=== PATIENT | male | born 1985 | race African-American/Black ===

== ENCOUNTER 2024-05-08 12:00 | Emergency (ER) | payer OTHER ==
[~2024-05-08] VITALS: Ht 175.3 cm; Wt 95.3 kg
[2024-05-08] MEDS ORDERED: CYCLOBENZAPRINE5 MG PO (12:18)
[2024-05-08] MEDS ORDERED: FAMOTIDINE/PF 20 MG/2 ML VIAL IV PUSH ONE (13:30)
[2024-05-08] MEDS ORDERED: 0.9 % SODIUM CHLORIDE 1,000 ML IV SCH (13:30)
[2024-05-08] MEDS ORDERED: PROMETHAZINE HCL 50 MG/ML AMPUL IM ONE (13:30)
[2024-05-08 14:02] LABS: HEMATOCRIT 44.5 % (39.0-48.0); HEMOGLOBIN 15.6 g/dL (13-16.00); MEAN CORPUSCULAR HEMOGLOBIN 29.8 pg (27.00-32.0); MEAN CORPUSCULAR HGB CONC 35.1 g/dl (32.0-36.0); PLATELET COUNT 280 K/uL (150-450); RED BLOOD COUNT 5.23 M/uL (4.00-6.00); RED CELL DISTRIBUTION WIDTH 14.5 % (11.5-14.5)
[2024-05-08 14:20] LABS: ALBUMIN 3.9 gm/dL (3.4-5.0); BILIRUBIN TOTAL 0.79 mg/dL (0.3-1.2); CALCIUM 9.5 mg/dL (8.5-10.1); CREATININE SERUM 0.91 mg/dL (0.70-1.30); GFR 94.27; GLOBULINA 4.3 G/DL (2.4-3.5); POTASSIUM 3.96 mEq/L (3.5-5.1); TOTAL PROTEIN 8.2 gm/dL (6.4-8.2)
[2024-05-08] MEDS ORDERED: METRONIDAZOLE500 MG PO (18:37)
[2024-05-08] MEDS ORDERED: PEPCID AC20 MG PO (18:37)
[2024-05-08] MEDS ORDERED: KETOROLAC TROMETHAMINE 60 MG VIAL IM ONE (18:45)
== END 2024-05-08 19:00 | disposition home or self-care (01) ==
LOC: ER 12:01
PROVIDERS: Emergency Medicine
DX: K52.89 Other specified noninfective gastroenteritis and colitis (principal); E11.65 Type 2 diabetes mellitus with hyperglycemia
CPT/HCPCS: 36415; 96365; 96366; 99282; J1885; J2250; J3490; J7030